=== PATIENT | male | born 1945 | race Caucasian/White ===

== ENCOUNTER 2020-03-04 10:53 | Inpatient (IN) ==
[2020-03-04] MEDS ORDERED: DEXAMETHASONE 4 MG/1 ML VIAL IV STA (11:16)
[2020-03-04 11:35] LABS: Basophils % 0.1 % (0.0-0.8); Eosinophils % 0.1 % (0.00-10.9); Hematocrit 39.4 VOL% (42.0-52.0); Hemoglobin 13.1 GM/DL (14.0-18.0); Immature Granulocytes % 0.9 %; Immature Granulocytes Absolute 0.13 #; Lymphocytes % 6.6 % (21.2-54.2); Mean Corpuscular HGB Conc 33.2 GM/DL (32-36); Mean Platelet Volume 10.3 FL (9.6-12.0); Monocytes % 6.6 % (1.7-12.7); Neutrophils % 85.7 % (38.7-73.9); Platelet Count 213 T/CUMM (130-400); Red Blood Count 4.02 MC/CUMM (3.8-5.5); Red Cell Distribution Width 13.6 % (9.3-17.3); White Blood Count 14.6 T/CUMM (4-12)
[2020-03-04 12:04] LABS: Alanine Aminotransferase 83 U/L (16-61); Albumin 3.2 G/DL (3.4-5.0); Alkaline Phosphatase 60 U/L (45-117); Aspartate Amino Transferase 50 U/L (0-37); Blood Urea Nitrogen 64 MG/DL (7-18); Calcium 8.6 MG/DL (8.5-10.1); Carbon Dioxide 23 MMOL/L (21-32); Estimated Glom Filtration Rate 57 ML/MIN; Glucose 95 MG/DL (74-106); Osmolality,Calculated 281.5 MOS/KG (273-304); Potassium 4.7 MMOL/L (3.5-5.1); Sodium 132 MMOL/L (136-145); Total Protein 6.3 G/DL (6.4-8.3)
[2020-03-04] MEDS ORDERED: SODIUM CHLORIDE 0.9% 1,000 ML IV STA ×2 (12:33→12:38)
[2020-03-04] MEDS ORDERED: cefTRIAXone 1,000 MG in SODIUM CHLORIDE 0.9% 100 ML IV STA (12:38)
[2020-03-04] MEDS ORDERED: cefTRIAXone 1,000 MG VIAL ONE (12:41)
[2020-03-04] MEDS ORDERED: MELATONIN 3 MG TABLET PO PRN (13:22)
[2020-03-04] MEDS ORDERED: ONDANSETRON 4 MG/2 ML VIAL IV PRN (13:22)
[2020-03-04] MEDS ORDERED: GLUCAGON 1 MG VIAL IM PRN (13:22)
[2020-03-04] MEDS ORDERED: DEXTROSE 50% 25 GM/50 ML VIAL IV PRN (13:22)
[2020-03-04] MEDS ORDERED: guaiFENesin/DM ER 600-30 MG TABLET PO PRN (13:22)
[2020-03-04] MEDS ORDERED: ACETAMINOPHEN 325 MG TABLET PO PRN (13:22)
[2020-03-04] MEDS ORDERED: BISACODYL 5 MG TABLET PO PRN (13:22)
[2020-03-04] MEDS: ENOXAPARIN 40 MG/0.4 ML SYRINGE SUBCUT SCH (19:34)
[2020-03-04] MEDS: SODIUM CHLORIDE 0.9% 1,000 ML IV SCH (19:34)
[2020-03-04] MEDS: FAMOTIDINE 20 MG TABLET PO SCH (22:26)
[2020-03-05 02:39] LABS: Calcium 8.5 MG/DL (8.5-10.1); Osmolality,Calculated 280.4 MOS/KG (273-304); Potassium 5.2 MMOL/L (3.5-5.1); Thyroid Stimulating Hormone 0.714 uIU/ml (0.358-3.74)
[2020-03-05 06:01] LABS: Basophils % 0.1 % (0.0-0.8); Hematocrit 36.8 VOL% (42.0-52.0); Hemoglobin 12.1 GM/DL (14.0-18.0); Immature Granulocytes % 0.6 %; Immature Granulocytes Absolute 0.05 #; Lymphocytes # 0.6 10*3/uL (1.4-4.0); Mean Corpuscular HGB Conc 32.9 GM/DL (32-36); Mean Corpuscular Volume 98.1 FL (87-102); Mean Platelet Volume 10.7 FL (9.6-12.0); Neutrophils % 82.3 % (38.7-73.9); Platelet Count 218 T/CUMM (130-400); Red Blood Count 3.75 MC/CUMM (3.8-5.5); Red Cell Distribution Width 13.5 % (9.3-17.3); White Blood Count 8.1 T/CUMM (4-12)
[2020-03-05] MEDS: SODIUM CHLORIDE 0.9% 1,000 ML IV SCH ×3 (06:47→17:51)
[2020-03-05] MEDS: CETIRIZINE 10 MG TABLET PO SCH (09:56)
[2020-03-05] MEDS: FAMOTIDINE 20 MG TABLET PO SCH ×2 (09:57→20:40)
[2020-03-05] MEDS: DEXAMETHASONE 4 MG/1 ML VIAL IV SCH (09:57)
[2020-03-05] MEDS: cefTRIAXone 1,000 MG in SYRINGE 1 EACH IV SCH (09:57)
[2020-03-05] MEDS: ZINC GLUCONATE 50 MG TABLET PO SCH (09:57)
[2020-03-05] MEDS: AZITHROMYCIN 250 MG TABLET PO SCH (09:57)
[2020-03-05] MEDS: ENOXAPARIN 40 MG/0.4 ML SYRINGE SUBCUT SCH (14:16)
[2020-03-06] MEDS: SODIUM CHLORIDE 0.9% 1,000 ML IV SCH (03:43)
[2020-03-06 05:25] LABS: Basophils % 0.1 % (0.0-0.8); Hematocrit 34.3 VOL% (42.0-52.0); Hemoglobin 11.3 GM/DL (14.0-18.0); Immature Granulocytes % 1.2 %; Immature Granulocytes Absolute 0.12 #; Lymphocytes # 0.9 10*3/uL (1.4-4.0); Lymphocytes % 8.5 % (21.2-54.2); Mean Corpuscular HGB Conc 32.9 GM/DL (32-36); Mean Corpuscular Volume 99.7 FL (87-102); Mean Platelet Volume 10.8 FL (9.6-12.0); Monocytes % 9.8 % (1.7-12.7); Neutrophils % 80.4 % (38.7-73.9); Platelet Count 227 T/CUMM (130-400); Red Blood Count 3.44 MC/CUMM (3.8-5.5); Red Cell Distribution Width 13.8 % (9.3-17.3)
[2020-03-06 05:51] LABS: Calcium 8.3 MG/DL (8.5-10.1); Osmolality,Calculated 290.5 MOS/KG (273-304); Potassium 4.8 MMOL/L (3.5-5.1)
[2020-03-06] MEDS: AZITHROMYCIN 250 MG TABLET PO SCH (09:14)
[2020-03-06] MEDS: DEXAMETHASONE 4 MG/1 ML VIAL IV SCH (09:14)
[2020-03-06] MEDS: CETIRIZINE 10 MG TABLET PO SCH (09:14)
[2020-03-06] MEDS: FAMOTIDINE 20 MG TABLET PO SCH (09:14)
[2020-03-06] MEDS: ZINC GLUCONATE 50 MG TABLET PO SCH (09:14)
[2020-03-06] MEDS: cefTRIAXone 1,000 MG in SYRINGE 1 EACH IV SCH (09:15)
[2020-03-06 11:09] VITALS: BP 148/77
== END 2020-03-06 12:44 | disposition home health service (06) | DRG 177 ==
LOC: EDBD → EDUNIT# → N.ED 10:53 → N.EDINP 13:22 → UNDODISIN 03-06 12:16
PROVIDERS: ADMIT Internal Medicine; ATTEND Internal Medicine